=== PATIENT | female | born 1965 | race Caucasian/White ===

== ENCOUNTER 2018-01-09 11:49 | Emergency (ER) | payer MEDICAID ==
[~2018-01-09] VITALS: Ht 160 cm; Wt 71.7 kg
[2018-01-09 11:49] VITALS: BP 118/84
[~2018-01-09 11:49] MED LIST: GABA-532 PO; METF10004 PO
== END 2018-01-09 12:23 | disposition home or self-care (01) ==
LOC: ER 11:52
DX: K12.0 Recurrent oral aphthae (principal); E11.40 Type 2 diabetes mellitus with diabetic neuropathy, unspecified; Z79.4 Long term (current) use of insulin
CPT/HCPCS: 99283; A4606; Z7610

== ENCOUNTER 2018-02-01 16:24 | Emergency (ER) | payer MEDICAID ==
[~2018-02-01] VITALS: Ht 157.5 cm; Wt 73.5 kg
[~2018-02-01 16:24] MED LIST changes: +METF-442 PO; -METF10004 PO
[2018-02-01] MEDS ORDERED: ACETAMINOPHEN ES 500 MG TABLET PO ONE (17:00)
[2018-02-01 17:13] LABS: BASOPHILS % (AUTO) 0.4 % (0.0-2.0); EOSINOPHILS % (AUTO) 1.6 % (0.0-6.0); HEMATOCRIT 36 % (33-45); HEMOGLOBIN 11.1 g/dL (11.5-14.8); LYMPHOCYTES % (AUTO) 31.9 % (20.0-44.0); MEAN CORPUSCULAR HGB CONC 31 g/dl (31.0-36.0); MEAN CORPUSCULAR VOLUME 77 fL (82-100); MONOCYTES # (AUTO) 0.3 /CMM (0.1-1.30); MONOCYTES % (AUTO) 5.5 % (2.0-12.0); NEUTROPHILS # (AUTO) 3.8 /CMM (1.8-8.9); NEUTROPHILS % (AUTO) 60.6 % (43.0-81.0); PLATELET COUNT (AUTO) 252 /CMM (150-450); RDW COEFFICIENT OF VARIATION 18.8 (11.5-15.0); RED BLOOD CELL COUNT(AUTO) 4.66 MIL/uL (4.0-5.2); WHITE BLOOD COUNT (AUTO) 6.3 K/uL (4.3-11.0)
[2018-02-01] MEDS ORDERED: ACETAMINOPHEN ES 500 MG TABLET ONE (17:16)
[2018-02-01 17:50] LABS: CALCIUM, SERUM 9.1 mg/dL (8.5-10.1); CARBON DIOXIDE 29 mmol/L (21-32); CHLORIDE 101 mmol/L (98-107); CREATININE 1.1 mg/dL (0.6-1.3); GLUCOSE 273 mg/dL (74-106); POTASSIUM 4.2 mmol/L (3.5-5.1); SODIUM SERUM 136 mmol/L (136-145); UREA NITROGEN, BLOOD 22 mg/dL (7-18)
[2018-02-01 17:56] LABS: ALANINE AMINOTRANSFERASE 16 U/L (12-78); ALBUMIN 3.4 g/dL (3.4-5.0); ALKALINE PHOSPHATASE 108 U/L (46-116); ASPARTATE AMINOTRANSFERASE 14 U/L (15-37); BILIRUBIN,DIRECT 0.1 mg/dL (0.0-0.2); BILIRUBIN,TOTAL 0.6 mg/dL (0.2-1.0); TOTAL PROTEIN, SERUM 7.4 g/dL (6.4-8.2)
[2018-02-01 17:57] LABS: TROPONIN I < 0.017 ng/mL (0.00-0.056)
[2018-02-01 17:58] LABS: D-DIMER 0.29 mg/L(FEU (0.17-0.50); INR 0.94 (0.87-1.13)
[2018-02-01 19:14] LABS: APPEARANCE,URINE Clear (CLEAR); BILIRUBIN,URINE Negative (NEGATIVE); BLOOD, URINE Moderate Ery/uL (NEGATIVE); COLOR,URINE Yellow (YELLOW); KETONES,URINE Negative (NEGATIVE); LEUKOCYTE ESTERASE ,URINE Trace (NEGATIVE); NITRITE, URINE Negative (NEGATIVE); PROTEIN,URINE Negative (NEGATIVE); UGLUCOSE 500 MG/DL mg/dL (NEGATIVE); UROBILINOGEN,URINE 0.2 EU/dL (0.2)
[2018-02-01 19:46] LABS: BACTERIA,URINE Few /HPF (None Seen); SQUAMOUS EPITHELIAL CELL,UR Few /HPF (None Seen); URINE AMORPHOUS URATE Few /HPF (None Seen); WBC,URINE 21-50 /HPF (0-3)
[2018-02-01 20:58] VITALS: BP 134/82
== END 2018-02-01 20:58 | disposition home or self-care (01) ==
LOC: ER 16:29
DX: R07.89 Other chest pain (principal); R79.89 Other specified abnormal findings of blood chemistry; R31.29 Other microscopic hematuria; E11.9 Type 2 diabetes mellitus without complications; G62.9 Polyneuropathy, unspecified; I49.8 Other specified cardiac arrhythmias
CPT/HCPCS: 36415; 71045-TC; 80048-TC; 80076-TC; 81000-TC; 84484-TC; 85025-TC; 85378-TC; 85730-TC; 87086-TC; 87186-TC; A4606; Z7610

== ENCOUNTER 2018-05-25 16:18 | Inpatient (IN) | payer MEDICAID ==
[~2018-05-25] VITALS: Ht 160 cm; Wt 72.7 kg
--- NOTE | 2018-05-25 16:30 | NUR ---
PT BIB SELF C/O "Shewas eating-felt nauseous but continued to eat now feels like something stuck on my throat". PT IS AAOX3, NOT IN RESPIRATORY DISTRESS, KEPT RESTED AND COMFORTABLE.
--- NOTE | 2018-05-25 16:38 | NUR ---
DR. LIMA AT BEDSIDE FOR EVAL.
--- NOTE | 2018-05-25 16:40 | NUR ---
LABS DRAWNED AND SENT TO LAB. AWAITING RESULTS.
[2018-05-25 16:44] LABS: BASOPHILS % (AUTO) 0.5 % (0.0-2.0); EOSINOPHILS % (AUTO) 1.4 % (0.0-6.0); HEMATOCRIT 38 % (33-45); HEMOGLOBIN 12.1 g/dL (11.5-14.8); LYMPHOCYTES # (AUTO) 1.6 /CMM (0.8-4.8); LYMPHOCYTES % (AUTO) 23.3 % (20.0-44.0); MEAN CORPUSCULAR HGB CONC 32 g/dl (31.0-36.0); MEAN CORPUSCULAR VOLUME 79 fL (82-100); MONOCYTES # (AUTO) 0.4 /CMM (0.1-1.30); MONOCYTES % (AUTO) 5.3 % (2.0-12.0); NEUTROPHILS # (AUTO) 4.7 /CMM (1.8-8.9); NEUTROPHILS % (AUTO) 69.5 % (43.0-81.0); PLATELET COUNT (AUTO) 208 /CMM (150-450); RED BLOOD CELL COUNT(AUTO) 4.77 MIL/uL (4.0-5.2); WHITE BLOOD COUNT (AUTO) 6.7 K/uL (4.3-11.0)
[2018-05-25] MEDS ORDERED: LIDOCAINE VISCOUS 2% UD 15 ML UDC ONE (16:49)
[2018-05-25] MEDS ORDERED: GLUCAGON,HUMAN RECOMBINANT 1 MG/VIAL VIAL ONE (16:49)
[2018-05-25] MEDS ORDERED: NITROGLYCERIN 0.4 MG/TAB BOTTLE ONE (16:49)
[2018-05-25] MEDS ORDERED: ONDANSETRON HCL/PF 4 MG/2 ML VIAL ONE (16:49)
[2018-05-25] MEDS ORDERED: WATER FOR INJECTION,STERILE 10 ML ONE (16:53)
[2018-05-25 16:58] LABS: CARBON DIOXIDE 29 mmol/L (21-32); CHLORIDE 98 mmol/L (98-107); CREATININE 1.4 mg/dL (0.6-1.3); POTASSIUM 4.1 mmol/L (3.5-5.1); SODIUM SERUM 134 mmol/L (136-145); UREA NITROGEN, BLOOD 24 mg/dL (7-18)
[2018-05-25] MEDS ORDERED: NITROGLYCERIN 0.4 MG/TAB BOTTLE SL ONE (17:00)
[2018-05-25] MEDS ORDERED: GLUCAGON,HUMAN RECOMBINANT 1 MG/VIAL VIAL IV ONE (17:00)
[2018-05-25] MEDS ORDERED: IV NS 0.9% 1,000 ML BAG IV ONE ×3 (17:00→19:30)
[2018-05-25] MEDS ORDERED: LIDOCAINE VISCOUS 2% UD 15 ML UDC MM ONE (17:00)
[2018-05-25] MEDS ORDERED: ONDANSETRON HCL/PF 4 MG/2 ML VIAL IV ONE (17:00)
[2018-05-25 17:01] LABS: GLUCOSE 504 mg/dL (74-106)
--- NOTE | 2018-05-25 17:06 | NUR ---
NITRO GLYCERIN SL 1.2MG GIVEN ALL AT ONCE. DR LIMA AWARE.
[2018-05-25] MEDS ORDERED: INSULIN REGULAR, HUMAN 100 UNIT/ML 10 ML VIAL SQ ONE ×2 (18:00→19:30)
[2018-05-25] MEDS ORDERED: INSULIN REGULAR, HUMAN 100 UNIT/ML 10 ML VIAL ONE ×2 (18:04→19:14)
[2018-05-25] MEDS ORDERED: INSU100V7 SQ (19:21)
[2018-05-25] MEDS ORDERED: GABA-534 PO (19:21)
[2018-05-25] MEDS ORDERED: INSU100V3 SQ (19:21)
--- NOTE | 2018-05-25 19:26 | NUR ---
REPORT GIVEN TO COOK VACUUM KETTLE FOR RICHARD.
[2018-05-25] MEDS ORDERED: ANESTHESIA TRAY IN PYXIS 1 EA TRAY MC ONE (19:53)
--- NOTE | 2018-05-25 20:05 | NUR ---
POST-OP BED ASSIGNMENT 315-1
--- NOTE | 2018-05-25 20:10 | NUR ---
PT PICKED UP BY SURGERY STAFF.
--- NOTE | 2018-05-25 20:26 | NUR ---
REPORT GIVEN MS GUEVARA DUSTIN.
[2018-05-25] MEDS ORDERED: MIDAZOLAM HCL 2 MG/2ML VIAL ONE (20:28)
[2018-05-25] MEDS ORDERED: SUCCINYLCHOLINE CHLORIDE 20 MG/ML VIAL ONE (20:29)
[2018-05-25] MEDS ORDERED: FENTANYL PF 100MCG/2ML AMPUL ONE (20:29)
[2018-05-25] MEDS ORDERED: METOCLOPRAMIDE HCL 10 MG/2 ML VIAL ONE (20:30)
[2018-05-25] MEDS ORDERED: FAMOTIDINE/PF INJ 20 MG/2 ML VIAL IV ONE (20:30)
[2018-05-25 22:00] VITALS: BP 144/85
--- NOTE | 2018-05-25 22:15 | NUR ---
RN ADMITTING NOTES Pt ARRIVED TO THE FLOOR FROM OR IN [facility]. S/P EMERGENCY EGD. Pt WAS ABLE TO AMB WITH STEADY GAIT FROM [facility] TO ROOM BED WITH STAND BY ASSISTANCE. FAMILY IS ALSO AT BEDSIDE. Pt IS LETHARGIC BUT IS AWAKE. Pt IS A/OX4, VERBAL, ABLE TO MAKE NEEDS KNOWN. IV ACCESS ON RAC #20G. NO S/S OF ACUTE DISTRESS OR SOB NOTED. Pt DENIES HAVING ANY CP NOW OR ANY DISCOMFORT AT THIS TIME. SAFETY MEASURES IN PLACE. BED LOW, LOCKED, HOB ELEVATED, SIDE RAILS UP, CALL LIGHT AND BEDSIDE TABLE WITHIN REACH. WILL CONTINUE TO MONITOR Pt's CONDITION AND [facility]
--- NOTE | 2018-05-25 22:16 | NUR ---
RN NOTES PER SIDER MECHANIC REPORT BG S/P EGD WAS 214. NO COVERAGE GIVEN. WAITING FOR ORDERS FROM [facility].
--- NOTE | 2018-05-25 22:45 | NUR ---
RN NOTES Pt S/B MIKE BARAJAS AT BEDSIDE.
[2018-05-25] MEDS ORDERED: ACETAMINOPHEN 325 MG TABLET PO PRN (23:00)
[2018-05-25] MEDS ORDERED: HYDROCODONE/APAP 5/325MG 1 EACH TABLET PO PRN (23:00)
[2018-05-25] MEDS ORDERED: MAG HYDROX/AL HYDROX/SIMETH 30 ML UDC PO PRN (23:00)
[2018-05-25] MEDS ORDERED: DEXTROSE 50%-WATER 50 ML DISP.SYRIN IV PRN (23:00)
[2018-05-25] MEDS ORDERED: Z GUARD REMEDY 2 OZ OINT TP PRN (23:00)
[2018-05-25] MEDS ORDERED: ONDANSETRON HCL/PF 4 MG/2 ML VIAL IVP PRN (23:00)
[2018-05-25] MEDS ORDERED: INSULIN REGULAR, HUMAN 100 UNIT/ML 3 ML VIAL SQ PRN (23:00)
[2018-05-25] MEDS ORDERED: HYDROCODONE/APAP 10/325MG 1 EA TABLET PO PRN (23:00)
[2018-05-25] MEDS ORDERED: MAGNESIUM HYDROXIDE 30 ML UDC PO PRN (23:00)
[2018-05-26] MEDS ORDERED: IV NS 0.9% 1,000 ML IV PRN
--- NOTE | 2018-05-26 01:00 | NUR ---
RN NOTES RECHECKED BG 155. BG HAS DECREASED FROM PREVIOUS BG OF 214. NO INSULIN COVERAGE GIVEN AT THIS TIME SINCE Pt IS NOT EATING. WILL RECHECK BG @0630.
--- NOTE | 2018-05-26 06:40 | NUR ---
RN NOTES AC ACCUCHECK BG 107. NO INSULIN COVERAGE NEEDED AT THIS TIME. Pt ON CLEAR LIQUID DIET. PROVIDED APPLE JUICE AT BEDSIDE.
[2018-05-26] MEDS: BLOOD SUGAR DIAGNOSTIC 1 EACH STRIP IN SCH ×3 (06:46→17:12)
[2018-05-26 06:54] LABS: BASOPHILS % (AUTO) 0.4 % (0.0-2.0); EOSINOPHILS % (AUTO) 1.2 % (0.0-6.0); HEMATOCRIT 34 % (33-45); HEMOGLOBIN 10.8 g/dL (11.5-14.8); LYMPHOCYTES # (AUTO) 2.1 /CMM (0.8-4.8); LYMPHOCYTES % (AUTO) 31.6 % (20.0-44.0); MEAN CORPUSCULAR HGB CONC 32 g/dl (31.0-36.0); MEAN CORPUSCULAR VOLUME 78 fL (82-100); MONOCYTES # (AUTO) 0.5 /CMM (0.1-1.30); MONOCYTES % (AUTO) 7.1 % (2.0-12.0); NEUTROPHILS # (AUTO) 3.9 /CMM (1.8-8.9); NEUTROPHILS % (AUTO) 59.7 % (43.0-81.0); PLATELET COUNT (AUTO) 192 /CMM (150-450); RED BLOOD CELL COUNT(AUTO) 4.33 MIL/uL (4.0-5.2); WHITE BLOOD COUNT (AUTO) 6.6 K/uL (4.3-11.0)
--- NOTE | 2018-05-26 06:55 | NUR ---
RN CLOSING NOTES NO SIGNIFICANT CHANGES IN Pt's CONDITION. Pt REMAINS STABLE PER BASELINE. Pt RESTING IN BED. RESPIRATIONS EVEN AND UNLABORED. NO S/S OF ACUTE DISTRESS OR SOB NOTED DURING NIGHT. ALL NEEDS MET AND ATTENDED TO. SAFETY MEASURES IN PLACE. WILL ENDORSE TO DAYSHIFT RN FOR Pt's RICHARD.
[2018-05-26 07:18] LABS: CALCIUM, SERUM 7.9 mg/dL (8.5-10.1); CREATININE 0.7 mg/dL (0.6-1.3); MAGNESIUM 1.9 mg/dL (1.8-2.4); PHOSPHORUS 2.6 mg/dL (2.5-4.9); POTASSIUM 4.1 mmol/L (3.5-5.1)
[2018-05-26 07:19] LABS: THYROID STIMULATING HORMONE 2.728 uIU/mL (0.358-3.74)
--- NOTE | 2018-05-26 07:35 | NUR ---
MS RN Notes Pt in bed sleeping but easily awoken. Pt's family at bedside. No s/s of acute distress or SOB with respirations even and unlabored. Pt denies pain of any kind at this time. Call light within reach. Will continue to monitor.
[2018-05-26 08:00] VITALS: BP 148/77
[2018-05-26] MEDS: INSULIN REGULAR, HUMAN 100 UNIT/ML 3 ML VIAL SQ SCH ×3 (08:32→17:12)
[2018-05-26 16:00] VITALS: BP 121/66
--- NOTE | 2018-05-26 18:28 | NUR ---
MS/RN - Discharge Patient alert and oriented throughout the shift, discharged to home in stable condition, remain afebrile, denies any pain, not in any form of distress, ambulatory with steady gait. Reviewed discharge instructions with patient and she verbalized full understanding of all teachings including medications and follow-up care with followup with PCP within [address] chest for evaluation of nodules in 12 months. Continue home medications, better management of diabetes. Seek immediate medical attention for worsening symptoms, chest pain, shortness of breath, palpitations, abdominal pain distention, intractable, nausea and vomiting, diarrhea, hematochezia, melena, weakness, loss of consciousness, neurological deficit, or any other emergent concerns. All belongings with patient and she deny any missing items. Patient refused photos to be taken of skin, no breakdown. Saline lock removed on the right AC with catheter tip intact, no redness, no swelling noted at the site. Discharge paperwork signed and copies were given per protocol. Accompanied to the lobby via wheelchair and transported by private car by daughter.
[2018-05-26] MEDS ORDERED: GABAPENTIN 300 MG CAPSULE PO SCH (22:00)
[2018-05-26] MEDS ORDERED: INSULIN GLARGINE, 100 UNIT/ML CARTRIDGE SQ SCH (22:00)
== END 2018-05-26 18:32 | disposition home or self-care (01) | DRG 254 ==
LOC: ER 16:19 → MED 20:13
PROVIDERS: ADMIT Nurse Practitioner Acute Care; ATTEND Nurse Practitioner Acute Care
PROC: 0DC18ZZ Extirpation of Matter from Upper Esophagus, Via Natural or Artificial Opening Endoscopic (ICD-10-PCS; principal; 2018-05-25)
DX: T18.128A Food in esophagus causing other injury, initial encounter (principal); N17.0 Acute kidney failure with tubular necrosis; E11.42 Type 2 diabetes mellitus with diabetic polyneuropathy; E11.65 Type 2 diabetes mellitus with hyperglycemia; X58.XXXA Exposure to other specified factors, initial encounter; Y92.009 Unspecified place in unspecified non-institutional (private) residence as the place of occurrence of the external cause; E87.1 Hypo-osmolality and hyponatremia; Z79.4 Long term (current) use of insulin; Z79.84 Long term (current) use of oral hypoglycemic drugs; Z79.899 Other long term (current) drug therapy; Z83.3 Family history of diabetes mellitus; R91.8 Other nonspecific abnormal finding of lung field; R59.0 Localized enlarged lymph nodes
CPT/HCPCS: 36415; 71045-TC; 71250-TC; 80048-TC; 80061-TC; 82962-TC; 83735-TC; 84100-TC; 84443-TC; 84484-TC; 85025-TC; 85730-TC; 87081-TC; G0378; J0330; J1610; J1815; J2250; J2405; J2704; J2765; J3010; J3490; J7030

== ENCOUNTER 2018-06-22 12:19 | Inpatient (IN) | payer MEDICAID ==
[~2018-06-22] VITALS: Ht 160 cm; Wt 69.4 kg
[~2018-06-22 12:19] MED LIST changes: -GABA-532 PO; +GABA-534 PO; +INSU100V3 SQ; +INSU100V7 SQ
--- NOTE | 2018-06-22 12:35 | NUR ---
BIB DAUGHTER C/O NECK PAIN RADIATES TO L CHEST AND LEFT ARM SINCE THIS AM. STATES PAIN 9/10. SKIN WARM, DRY, INTACT. PT IS AOX4, AMB, VSS, RR EVEN AND UNLABORED ON RA. APPEARS SLIGHTLY ANXIOUS. HOOKED ON MONITOR AND READY FOR EVAL.
[2018-06-22] MEDS ORDERED: ASPIRIN 325 MG TABLET ONE (12:42)
[2018-06-22 12:58] LABS: BASOPHILS % (AUTO) 0.5 % (0.0-2.0); EOSINOPHILS % (AUTO) 1.2 % (0.0-6.0); HEMATOCRIT 37 % (33-45); HEMOGLOBIN 11.7 g/dL (11.5-14.8); LYMPHOCYTES # (AUTO) 1.7 /CMM (0.8-4.8); LYMPHOCYTES % (AUTO) 29.8 % (20.0-44.0); MEAN CORPUSCULAR HGB CONC 32 g/dl (31.0-36.0); MEAN CORPUSCULAR VOLUME 79 fL (82-100); MONOCYTES # (AUTO) 0.3 /CMM (0.1-1.30); MONOCYTES % (AUTO) 5.7 % (2.0-12.0); NEUTROPHILS # (AUTO) 3.5 /CMM (1.8-8.9); NEUTROPHILS % (AUTO) 62.8 % (43.0-81.0); PLATELET COUNT (AUTO) 193 /CMM (150-450); RED BLOOD CELL COUNT(AUTO) 4.67 MIL/uL (4.0-5.2); WHITE BLOOD COUNT (AUTO) 5.6 K/uL (4.3-11.0)
[2018-06-22] MEDS ORDERED: NITROGLYCERIN 0.4 MG/TAB BOTTLE SL ONE (13:00)
[2018-06-22] MEDS ORDERED: ASPIRIN 325 MG TABLET PO ONE (13:00)
[2018-06-22] MEDS ORDERED: NITROGLYCERIN 0.4 MG/TAB BOTTLE ONE (13:02)
[2018-06-22 13:05] LABS: CARBON DIOXIDE 24 mmol/L (21-32); CHLORIDE 105 mmol/L (98-107); GLUCOSE 284 mg/dL (74-106); POTASSIUM 4.6 mmol/L (3.5-5.1); SODIUM SERUM 137 mmol/L (136-145); UREA NITROGEN, BLOOD 33 mg/dL (7-18)
[2018-06-22 13:11] LABS: ALANINE AMINOTRANSFERASE 15 U/L (12-78); ALBUMIN 3.3 g/dL (3.4-5.0); ALKALINE PHOSPHATASE 112 U/L (46-116); ASPARTATE AMINOTRANSFERASE 12 U/L (15-37); BILIRUBIN,DIRECT 0.1 mg/dL (0.0-0.2); BILIRUBIN,TOTAL 0.6 mg/dL (0.2-1.0); TOTAL PROTEIN, SERUM 7.2 g/dL (6.4-8.2)
[2018-06-22] MEDS ORDERED: IV NS 0.9% 1,000 ML BAG IV ONE (14:00)
--- NOTE | 2018-06-22 14:51 | NUR ---
PT RESTING COMFORTABLY WITH FAMILY AT BEDSIDE. STATES SHE NO LONGER FEELS PAIN. WILL CONT TO MONITOR
--- NOTE | 2018-06-22 15:21 | NUR ---
CALLED [employer] SUPERVISOR TILE AND MOTTLE WAS PAGED.
[2018-06-22] MEDS ORDERED: NITROGLYCERIN PACKET 1 GM PACKET TOP ONE (16:30)
--- NOTE | 2018-06-22 16:35 | NUR ---
ADMIT TO 118-2 TELE
[2018-06-22] MEDS ORDERED: NITROGLYCERIN PACKET 1 GM PACKET ONE (16:37)
--- NOTE | 2018-06-22 16:53 | NUR ---
PT HAVING MEAL WITH DAUGHTER, OK PER
[2018-06-22] MEDS ORDERED: ACETAMINOPHEN 325 MG TABLET PO PRN (17:00)
[2018-06-22] MEDS ORDERED: Z GUARD REMEDY 2 OZ OINT TP PRN (17:00)
[2018-06-22] MEDS ORDERED: ONDANSETRON HCL/PF 4 MG/2 ML VIAL IVP PRN (17:00)
[2018-06-22] MEDS ORDERED: MAG HYDROX/AL HYDROX/SIMETH 30 ML UDC PO PRN (17:00)
[2018-06-22] MEDS ORDERED: HYDROCODONE/APAP 5/325MG 1 EACH TABLET PO PRN (17:00)
[2018-06-22] MEDS ORDERED: MAGNESIUM HYDROXIDE 30 ML UDC PO PRN (17:00)
[2018-06-22] MEDS ORDERED: ZOLPIDEM TARTRATE 5 MG TABLET PO PRN (17:00)
--- NOTE | 2018-06-22 17:17 | NUR ---
REPORT GIVEN TO GUEVARA MENA FOR 118-2 T
--- NOTE | 2018-06-22 18:38 | NUR ---
[facility]
[2018-06-22 18:40] VITALS: BP 129/71
--- NOTE | 2018-06-22 18:40 | NUR ---
RN NOTES RECEIVED PT FROM ER IN ROOM 118-2, A/Ox4, [place] SPEAKING , ON TELE SR HR IN 70'S , SUPPORTIVE FAMILY AT THE BEDSIDE, WILL ENDOSE TO HEEL SLUGGER NURSE FOR CONTINUITY OF CARE .
--- NOTE | 2018-06-22 19:45 | NUR ---
GOLF MANAGERHOME HOSPICE AIDE NOTE: PT ADMITTED FROM ER VIA [facility] WITH DIAGNOSIS OF CHEST PAIN. NO APPARENT DISTRESS NOTED AT THIS TIME. PT IS GERMAN SPEAKING, UNABLE TO UNDERSTAND/SPEAK [place]. FAMILY AT BEDSIDE. NO COMPLAINTS OF PAIN OR DISCOMFORT AT THIS TIME. ON ROOM AIR, NO SOB NOTED. IV ON LEFT ANTECUBITAL #20 INTACT AND PATENT, FLUSHING WELL. PERTINENT ASSESSMENT DONE. SKIN IS INTACT. SINUS RHYTHM ON TELE MONITOR HR 88BPM. KEPT CLEAN, DRY AND COMFORTABLE. CALL LIGHT PLACED WITHIN REACH. SAFETY AND FALL PRECAUTIONS OBSERVED AND MAINTAINED. WILL CONTINUE TO MONITOR PT.
[2018-06-22 20:00] VITALS: BP 137/71
[2018-06-22] MEDS: INSULIN REGULAR, HUMAN 100 UNIT/ML 3 ML VIAL SQ SCH (20:38)
--- NOTE | 2018-06-22 20:43 | NUR ---
SALES/MARKETING NOTE: CALLED PHARMACY REGARDING PATIENT'S INSULIN DUE AT 1700 THAT WAS NOT GIVEN. PER PHARMACY, OK TO GIVE INSULIN AT THIS TIME. BLOOD SUGAR CHECKED, 172MG/DL. WILL CONTINUE TO MONITOR PT.
[2018-06-22] MEDS ORDERED: INSULIN GLARGINE, 100 UNIT/ML CARTRIDGE SQ SCH (22:00)
[2018-06-22] MEDS: GABAPENTIN 300 MG CAPSULE PO SCH (22:02)
[2018-06-23] VITALS: BP_SYST 109; BP_SYST 99; BP_DIAS 55; BP_DIAS 57
[2018-06-23 04:00] VITALS: BP 117/61
--- NOTE | 2018-06-23 06:35 | NUR ---
AIR CREW OFFICER NOTE: NO CHANGES NOTED THROUGHOUT THE SHIFT. NO APPARENT DISTRESS NOTED. DENIES PAIN AND DISCOMFORT AT THIS TIME. ON ROOM AIR, SATURATING WELL. SINUS RHYTHM ON TELE MONITOR HR 62BPM. KEPT CLEAN, DRY AND COMFORTABLE. SAFETY AND FALL PRECAUTIONS OBSERVED AND MAINTAINED. WILL ENDORSE TO DAY SHIFT RN FOR CONTINUITY OF CARE.
[2018-06-23 07:08] LABS: BASOPHILS % (AUTO) 0.6 % (0.0-2.0); EOSINOPHILS % (AUTO) 1.5 % (0.0-6.0); HEMATOCRIT 32 % (33-45); HEMOGLOBIN 10.5 g/dL (11.5-14.8); LYMPHOCYTES # (AUTO) 2.5 /CMM (0.8-4.8); LYMPHOCYTES % (AUTO) 45.9 % (20.0-44.0); MEAN CORPUSCULAR HGB CONC 33 g/dl (31.0-36.0); MEAN CORPUSCULAR VOLUME 78 fL (82-100); MONOCYTES # (AUTO) 0.4 /CMM (0.1-1.30); MONOCYTES % (AUTO) 7.1 % (2.0-12.0); NEUTROPHILS # (AUTO) 2.4 /CMM (1.8-8.9); NEUTROPHILS % (AUTO) 44.9 % (43.0-81.0); PLATELET COUNT (AUTO) 165 /CMM (150-450); RED BLOOD CELL COUNT(AUTO) 4.07 MIL/uL (4.0-5.2); WHITE BLOOD COUNT (AUTO) 5.4 K/uL (4.3-11.0)
[2018-06-23 07:34] LABS: CALCIUM, SERUM 8.5 mg/dL (8.5-10.1); CREATININE 0.9 mg/dL (0.6-1.3); MAGNESIUM 1.9 mg/dL (1.8-2.4); POTASSIUM 4.1 mmol/L (3.5-5.1)
[2018-06-23 08:00] VITALS: BP 119/71
--- NOTE | 2018-06-23 08:00 | NUR ---
PATIENT IS ALERT AND ORIENTED X4. PATIENTS VITAL SIGNS ARE WNL. PATIENT REPORTING NO DISCOMFORT AND 0/10 PAIN ON PAIN SCALE. PATIENT IS IN NO APPARENT DISTRESS. PATIENT IS ON ROOM AIR WITH NORMAL SATURATION LEVEL. PATIENT NORMAL SINUS RHYTHM. SAFETY AND FALL PRECAUTIONS ARE OBSERVED AND MAINTAINED. PATIENT IS ON CARDIAC DIET. WILL ENDORSE TO MANAGER OF PHARMACY RN FOR CONTINUITY OF CARE.
[2018-06-23] MEDS ORDERED: BLOO-668 IN (08:39)
[2018-06-23] MEDS ORDERED: METFORMIN 500 MG TABLET PO SCH (09:00)
--- NOTE | 2018-06-23 09:12 | NUR ---
DR PUTNAM CAME TO SEE THE PT AND ORDERED TO ADMINISTER GLUCOPHAGE 500 [address] NOW [address] ANGIOGRAM.WILL FOLLOW UP WITH CT.
[2018-06-23] MEDS: BLOOD SUGAR DIAGNOSTIC 1 EACH STRIP IN SCH ×3 (09:14→16:54)
[2018-06-23] MEDS: ASPIRIN 81 MG TAB.CHEW PO SCH (09:41)
[2018-06-23] MEDS: ATORVASTATIN 10 MG TABLET PO SCH (09:41)
[2018-06-23] MEDS: LOSARTAN POTASSIUM 50 MG TABLET PO SCH (09:42)
[2018-06-23] MEDS: INSULIN REGULAR, HUMAN 100 UNIT/ML 3 ML VIAL SQ SCH ×3 (09:44→18:40)
[2018-06-23 12:00] VITALS: BP 132/64
[2018-06-23 12:57] LABS: THYROID STIMULATING HORMONE 2.075 uIU/mL (0.358-3.74)
--- NOTE | 2018-06-23 13:47 | NUR ---
PT STILL NPO DUE TO PENDING CT ANGIOGRAM WITH 3D IMAGE PROCEDURE.PT COMPLIANT.CONSENT HAS BEEN SIGNED.INSULIN HELD DUE TO NPO.WILL ADMINISTER SOON THE PT EATS HER LUNCH.
[2018-06-23 16:00] VITALS: BP 130/71
[2018-06-23] MEDS ORDERED: CT SWABBABLE VALVE TRANS SET 1 EA INFUS.SET MC ONE (16:57)
[2018-06-23] MEDS ORDERED: IV NS 0.9% 250 ML IV ONE (16:57)
[2018-06-23] MEDS ORDERED: IOHEXOL-350 100 ML VIAL IV ONE (16:57)
[2018-06-23] MEDS ORDERED: METOPROLOL TARTRATE INJ 5 MG/5 ML AMPUL ONE ×4 (16:58→17:36)
--- NOTE | 2018-06-23 17:00 | NUR ---
PT WAS BROUGHT TO CT FOR CTA PROCEDURE.WITH STABLE V/S.BLOOD SUGAR IS 79.
[2018-06-23] MEDS ORDERED: METOPROLOL TARTRATE INJ 5 MG/5 ML AMPUL IVP ONE (17:30)
[2018-06-23] MEDS ORDERED: IV NS 0.9% 500 ML IV ONE (17:30)
--- NOTE | 2018-06-23 18:00 | NUR ---
PT CAME BACK FROM CT POST CT ANGIOGRAM WITH STABLE V/S. BP 128/88.METOPROLOL 50 MG PO AND IV NS [address] UNIT.PT ATE DINNER AND HUMULIN R 5 UNITS WILL BE ADMINISTERED.FAMILY AT BEDSIDE.CALL LIGHT PLACED WITHIN REACH.
--- NOTE | 2018-06-23 19:45 | NUR ---
MS RN NOTE: RECEIVED PT ON BED ALERT AND AWAKE. ABLE TO MAKE NEEDS KNOWN. FAMILY MEMBER AT BEDSIDE. NO APPARENT DISTRESS NOTED. ON ROOM AIR, NO SOB NOTED. DENIES PAIN AND DISCOMFORT. RIGHT AC #18 INTACT AND PATENT, FLUSHING WELL. KEPT CLEAN, DRY AND COMFORTABLE. SAFETY AND FALL PRECAUTIONS OBSERVED AND MAINTAINED. CALL LIGHT WITHIN REACH. WILL CONTINUE TO MONITOR PT.
[2018-06-23 20:00] VITALS: BP 114/59
[2018-06-23] MEDS: GABAPENTIN 300 MG CAPSULE PO SCH (21:32)
[2018-06-23] MEDS: INSULIN GLARGINE, 100 UNIT/ML CARTRIDGE SQ SCH (21:33)
--- NOTE | 2018-06-23 21:33 | NUR ---
MS RN NOTE: INSULIN LANTUS HELD, BLOOD SUGAR 73MG/DL
[2018-06-24 04:00] VITALS: BP 110/57
[2018-06-24 06:25] LABS: CALCIUM, SERUM 8.7 mg/dL (8.5-10.1); CREATININE 0.8 mg/dL (0.6-1.3); POTASSIUM 4.3 mmol/L (3.5-5.1)
[2018-06-24 06:42] LABS: BASOPHILS % (AUTO) 0.6 % (0.0-2.0); EOSINOPHILS % (AUTO) 2.1 % (0.0-6.0); HEMATOCRIT 34 % (33-45); LYMPHOCYTES # (AUTO) 2.4 /CMM (0.8-4.8); LYMPHOCYTES % (AUTO) 42.4 % (20.0-44.0); MEAN CORPUSCULAR HGB CONC 33 g/dl (31.0-36.0); MEAN CORPUSCULAR VOLUME 78 fL (82-100); MONOCYTES # (AUTO) 0.4 /CMM (0.1-1.30); MONOCYTES % (AUTO) 7.1 % (2.0-12.0); NEUTROPHILS # (AUTO) 2.7 /CMM (1.8-8.9); NEUTROPHILS % (AUTO) 47.8 % (43.0-81.0); PLATELET COUNT (AUTO) 185 /CMM (150-450); RED BLOOD CELL COUNT(AUTO) 4.32 MIL/uL (4.0-5.2); WHITE BLOOD COUNT (AUTO) 5.6 K/uL (4.3-11.0)
--- NOTE | 2018-06-24 06:55 | NUR ---
MS RN NOTE: NO CHANGES NOTED THROUGHOUT THE SHIFT. NO ACUTE DISTRESS NOTED. DENIES PAIN AND DISCOMFORT AT THIS TIME. ON ROOM AIR, SATURATING WELL. KEPT CLEAN, DRY AND COMFORTABLE. SAFETY AND FALL PRECAUTIONS OBSERVED AND MAINTAINED. WILL ENDORSE TO DAY SHIFT RN FOR CONTINUITY OF CARE.
--- NOTE | 2018-06-24 07:20 | NUR ---
RN MS OPENING NOTES RECEIVED PATIENT IN BED ASLEEP . DAUGHTER AT BEDSIDE. A/O X4 KYRGYZ SPEAKING. NO SIGNS OR SYMPTOMS OF RESPIRATORY DISTRESS OR ACUTE PAIN NOTED. NO C/O CHEST PAIN. IV IN RAC #18 SALINE LOCK. SAFETY PRECAUTIONS IN PLACE BED IN LOW POSITION CALL LIGHT WITHIN REACH WILL CONT TO MONITOR
[2018-06-24 08:00] VITALS: BP 96/57
[2018-06-24] MEDS: LOSARTAN POTASSIUM 50 MG TABLET PO SCH (09:00)
[2018-06-24] MEDS: BLOOD SUGAR DIAGNOSTIC 1 EACH STRIP IN SCH ×3 (09:04→17:25)
[2018-06-24] MEDS: ATORVASTATIN 10 MG TABLET PO SCH (09:06)
[2018-06-24] MEDS: INSULIN REGULAR, HUMAN 100 UNIT/ML 3 ML VIAL SQ SCH ×3 (09:06→17:49)
[2018-06-24] MEDS: ASPIRIN 81 MG TAB.CHEW PO SCH (09:06)
[2018-06-24 16:00] VITALS: BP 96/64
--- NOTE | 2018-06-24 19:20 | NUR ---
RN MS CLOSING NOTES PATIENT A/O X4 NO SIGNS OR SYMPTOMS OF DISTRESS OR ACUTE PAIN. AWAITING PLACEMENT TO FACILITY FOR HIRE LEVEL OF CARE. LAD @80% STENOSIS NEEDED CARDIAC CATH. GREENLANDIC SPEAKING DAUGHTER AT BEDSIDE. WILL ENDORSE TO NOC
[2018-06-24 20:00] VITALS: BP 107/67
--- NOTE | 2018-06-24 20:00 | NUR ---
RN VEGA OPENING NOTES RECEIVED PATIENT IN BED DAUGHTER AT THE BEDSIDE. PATIENT IS A/O X4 TRINIDADIAN SPEAKING. NO SIGNS OR SYMPTOMS OF RESPIRATORY DISTRESS OR ACUTE PAIN NOTED. NO C/O CHEST PAIN OR SOB AT THIS TIME . IV IN RAC #18 IV SALINE LOCK IS IN PLACE, PATIENT AND INTACT. SAFETY PRECAUTIONS IN PLACE BED IN LOW POSITION CALL LIGHT WITHIN REACH WILL CONT TO MONITOR PATIENT CLOSELY.
[2018-06-24] MEDS: GABAPENTIN 300 MG CAPSULE PO SCH (22:20)
[2018-06-24] MEDS: INSULIN GLARGINE, 100 UNIT/ML CARTRIDGE SQ SCH (22:26)
[2018-06-25 04:00] VITALS: BP 105/60
[2018-06-25 07:09] LABS: BASOPHILS % (AUTO) 0.3 % (0.0-2.0); HEMATOCRIT 35 % (33-45); HEMOGLOBIN 11.2 g/dL (11.5-14.8); LYMPHOCYTES # (AUTO) 1.8 /CMM (0.8-4.8); LYMPHOCYTES % (AUTO) 37.1 % (20.0-44.0); MEAN CORPUSCULAR HGB CONC 32 g/dl (31.0-36.0); MEAN CORPUSCULAR VOLUME 79 fL (82-100); MONOCYTES # (AUTO) 0.4 /CMM (0.1-1.30); MONOCYTES % (AUTO) 8.6 % (2.0-12.0); NEUTROPHILS # (AUTO) 2.5 /CMM (1.8-8.9); PLATELET COUNT (AUTO) 165 /CMM (150-450); RED BLOOD CELL COUNT(AUTO) 4.47 MIL/uL (4.0-5.2); WHITE BLOOD COUNT (AUTO) 4.9 K/uL (4.3-11.0)
[2018-06-25 07:28] LABS: CALCIUM, SERUM 8.8 mg/dL (8.5-10.1); CREATININE 0.9 mg/dL (0.6-1.3); POTASSIUM 4.4 mmol/L (3.5-5.1)
--- NOTE | 2018-06-25 07:31 | NUR ---
RN OPENING NOTE RECEIVED PATIENT IN BED AWAKE AND ALERT. LUXEMBOURG[place] SPEAKING. A&OX4. DAUGHTER ON BEDSIDE. SKIN IS INTACT. HAS AN ACCESS RIGHT AC #18 SL. PATIENT IS AMBULATORY AND HAS BATHROOM PRIVILEGES. NO COMPLAINS OF ANY PAIN AT THIS TIME. NO DISTRESS OR ANY SOB. WILL CONTINUE TO MONITOR THROUGHOUT THE SHIFT.
[2018-06-25] MEDS: ASPIRIN 81 MG TAB.CHEW PO SCH (08:19)
[2018-06-25] MEDS: ATORVASTATIN 10 MG TABLET PO SCH (08:22)
[2018-06-25] MEDS: LOSARTAN POTASSIUM 50 MG TABLET PO SCH (08:22)
[2018-06-25] MEDS: BLOOD SUGAR DIAGNOSTIC 1 EACH STRIP IN SCH ×2 (08:29→13:30)
[2018-06-25] MEDS: INSULIN REGULAR, HUMAN 100 UNIT/ML 3 ML VIAL SQ SCH ×2 (08:33→13:30)
[2018-06-25] MEDS ORDERED: CARVEDILOL 3.125 MG TABLET PO SCH (09:00)
--- NOTE | 2018-06-25 10:37 | NUR ---
MS nurse ,renal case manager here for discussed for transfer to [facility] possible heart catheter tomorrow stated that will sign AMA wants to go [facility] with family member, was notified and provide all lab results CD as needed and signed AMA paper at this time
[2018-06-25 12:00] VITALS: BP 96/58
== END 2018-06-25 13:24 | disposition left against medical advice (07) | DRG 198 ==
LOC: ER 12:22 → TELE1 17:51 → MEDSG1 06-23 19:11
PROVIDERS: ADMIT Family Medicine; ATTEND Internal Medicine
DX: I25.10 Atherosclerotic heart disease of native coronary artery without angina pectoris (principal); E11.42 Type 2 diabetes mellitus with diabetic polyneuropathy; E11.65 Type 2 diabetes mellitus with hyperglycemia; E86.9 Volume depletion, unspecified; E44.1 Mild protein-calorie malnutrition; Z79.4 Long term (current) use of insulin; E78.5 Hyperlipidemia, unspecified; I10 Essential (primary) hypertension; Z83.3 Family history of diabetes mellitus
CPT/HCPCS: 36415; 71045-TC; 75574; 80048-TC; 80061-TC; 80076-TC; 82962-TC; 83735-TC; 84100-TC; 84439-TC; 84443-TC; 84484-TC; 85025-TC; 85730-TC; 87081-TC; 93307-TC; G0378; J1815; J3490; J7030; J7040; J7050; Q9967

== ENCOUNTER 2018-10-16 12:33 | Inpatient (IN) | payer MEDICAID ==
[~2018-10-16] VITALS: Ht 157.5 cm; Wt 68.2 kg
--- NOTE | 2018-10-16 01:44 | NUR ---
RN NOTES BLOOD SUGAR 61, JUST TAKEN BEFORE PREPARATION OF MEDICATION. WITHELD MEDICATION, ALTHOUGH IT WAS SCANNED. WILL MONITOR PATIENT.
[~2018-10-16 12:33] MED LIST changes: +BLOO-668 IN
--- NOTE | 2018-10-16 12:45 | NUR ---
CAME IN W C/O L SIDED PRESSURE LIKE CHEST PAIN RADIATING TO L SHOULDER AND NECK. STARTED 2 DAYS AGO. TO ER BED 10, HOOKED TO MONITOR, CHANGED TO GOWN, PROVIDED W WARM BLANKET, AWAITING MD AMES.
--- NOTE | 2018-10-16 12:48 | NUR ---
DR LI AT BEDSIDE
[2018-10-16 13:03] LABS: BASOPHILS % (AUTO) 0.6 % (0.0-2.0); EOSINOPHILS % (AUTO) 1.5 % (0.0-6.0); HEMATOCRIT 37 % (33-45); LYMPHOCYTES # (AUTO) 1.4 /CMM (0.8-4.8); LYMPHOCYTES % (AUTO) 26.9 % (20.0-44.0); MEAN CORPUSCULAR HGB CONC 33 g/dl (31.0-36.0); MEAN CORPUSCULAR VOLUME 81 fL (82-100); MONOCYTES # (AUTO) 0.3 /CMM (0.1-1.30); MONOCYTES % (AUTO) 6.8 % (2.0-12.0); NEUTROPHILS # (AUTO) 3.3 /CMM (1.8-8.9); NEUTROPHILS % (AUTO) 64.2 % (43.0-81.0); PLATELET COUNT (AUTO) 184 /CMM (150-450); RED BLOOD CELL COUNT(AUTO) 4.53 MIL/uL (4.0-5.2); WHITE BLOOD COUNT (AUTO) 5.1 K/uL (4.3-11.0)
[2018-10-16] MEDS ORDERED: ASPI-1169 PO (13:11)
[2018-10-16 13:22] LABS: CARBON DIOXIDE 25 mmol/L (21-32); CHLORIDE 100 mmol/L (98-107); CREATININE 1.2 mg/dL (0.6-1.3); POTASSIUM 4.3 mmol/L (3.5-5.1); SODIUM SERUM 135 mmol/L (136-145); UREA NITROGEN, BLOOD 31 mg/dL (7-18)
[2018-10-16 13:24] LABS: GLUCOSE 412 mg/dL (74-106)
[2018-10-16] MEDS ORDERED: ASPIRIN 325 MG TABLET PO ONE (13:30)
[2018-10-16] MEDS ORDERED: ASPIRIN 325 MG TABLET ONE (13:44)
--- NOTE | 2018-10-16 14:31 | NUR ---
ASSIGNED BED 207-1 Addendum: 10/16/18 at 1431 by ROALCANCES CORRECTION: BED 320-1
--- NOTE | 2018-10-16 14:48 | NUR ---
REPORT GIVEN TI JASSON WATERMAN OF TELE UNIT
--- NOTE | 2018-10-16 16:27 | NUR ---
TRAFFIC CONTROL OPERATORWILDLIFE ENFORCEMENT MAJOR NOTES Received Patient comfortable and resting in bed. A/O x 4. VS stable with no acute distress. Breathing even and unlabored on room air with no respiratory distress. Denies pain. Telemonitor in place and operational reading SR with HR-80s. 20g PIV on RFA clean, dry, intact, and flushing well. Skin intact. Safety precautions in place. Bed locked and set to lowest position with side rails x 2. All needs rendered at this time. Daughter at bedside. Will continue to monitor.
[2018-10-16] MEDS ORDERED: Z GUARD REMEDY 2 OZ OINT TP PRN (17:00)
[2018-10-16] MEDS ORDERED: MAGNESIUM HYDROXIDE 30 ML UDC PO PRN (17:00)
[2018-10-16] MEDS: BLOOD SUGAR DIAGNOSTIC 1 EACH STRIP IN SCH ×2 (17:00→20:41)
[2018-10-16] MEDS ORDERED: ACETAMINOPHEN 325 MG TABLET PO PRN (17:00)
[2018-10-16] MEDS ORDERED: DEXTROSE 50%-WATER 50 ML DISP.SYRIN IV PRN (17:00)
[2018-10-16] MEDS ORDERED: HYDROCODONE/APAP 5/325MG 1 EACH TABLET PO PRN (17:00)
[2018-10-16] MEDS ORDERED: ONDANSETRON HCL/PF 4 MG/2 ML VIAL IVP PRN (17:00)
[2018-10-16] MEDS ORDERED: ZOLPIDEM TARTRATE 5 MG TABLET PO PRN (17:00)
[2018-10-16] MEDS: METFORMIN 500 MG TABLET PO SCH (18:06)
--- NOTE | 2018-10-16 19:30 | NUR ---
REPAIR SERVICER CLOSING NOTES Patient comfortable and resting in bed. A/O x 4. VS stable with no acute distress. Breathing even and unlabored on room air with no respiratory distress. Denies pain. Telemonitor in place and operational reading SR with HR-80s. 20g PIV on RFA clean, dry, intact, and flushing well. Safety precautions in place. Bed locked and set to lowest position with side rails x 2. All needs rendered at this time. Family at bedside. Will endorse plan of care to oncoming shift.
--- NOTE | 2018-10-16 19:41 | NUR ---
RN OPENING NOTES RECEIVED PATIENT AWAKE IN BED. FAMILY AT BEDSIDE. A/O X4. ON TELE MONITOR. NO SIGNS OF RESPIRATORY DISTRESS NOTED. DENIES SOB. PATIENT DENIES PAIN/DISCOMFORT AT THIS TIME. IV SITE PATENT AND INTACT. SAFETY PRECAUTIONS IMPLEMENTED; CALL LIGHT WITHIN REACH, BED LOW, BED LOCKED, SIDERAILS UP X2. WILL CONTINUE TO MONITOR PATIENT.
[2018-10-16 20:00] VITALS: BP 131/69
--- NOTE | 2018-10-16 20:59 | NUR ---
RN NOTES BLOOD SUGAR 329. ADMINISTERED 12 UNITS. SNACKS WERE GIVEN.
[2018-10-16] MEDS: INSULIN REGULAR, HUMAN 100 UNIT/ML 3 ML VIAL SQ PRN (21:00)
[2018-10-16] MEDS ORDERED: GABAPENTIN 400 MG CAPSULE PO SCH (22:00)
[2018-10-17] VITALS: BP 91/55
[2018-10-17] MEDS ORDERED: IV NS 0.9% 1,000 ML IV PRN (00:30)
[2018-10-17] MEDS ORDERED: ATORVASTATIN 10 MG TABLET PO SCH (00:30)
[2018-10-17] MEDS: BLOOD SUGAR DIAGNOSTIC 1 EACH STRIP IN SCH ×5 (01:38→13:13)
[2018-10-17] MEDS: INSULIN REGULAR, HUMAN 100 UNIT/ML 3 ML VIAL SQ PRN ×4 (01:43→08:50)
--- NOTE | 2018-10-17 01:44 | NUR ---
RN NOTES BLOOD SUGAR 61, JUST TAKEN BEFORE PREPARATION OF MEDICATION. WITHELD MEDICATION, ALTHOUGH IT WAS SCANNED. WILL MONITOR PATIENT.
--- NOTE | 2018-10-17 01:44 | NUR ---
RN NOTES WITHHELD INSULIN ALTHOUGH I SCANNED MEDICATION. BLOOD SUGAR WAS SLIGHTLY LOW BELOW NORMAL.
--- NOTE | 2018-10-17 01:45 | NUR ---
RN NOTES DISREGARD NOTES FOR 10/17 143. ACCIDENTALLY PUT WRONG DATE.
[2018-10-17 03:44] LABS: BASOPHILS % (AUTO) 0.5 % (0.0-2.0); EOSINOPHILS % (AUTO) 2.4 % (0.0-6.0); HEMATOCRIT 35 % (33-45); HEMOGLOBIN 11.5 g/dL (11.5-14.8); LYMPHOCYTES # (AUTO) 1.8 /CMM (0.8-4.8); LYMPHOCYTES % (AUTO) 25.6 % (20.0-44.0); MEAN CORPUSCULAR HGB CONC 33 g/dl (31.0-36.0); MEAN CORPUSCULAR VOLUME 80 fL (82-100); MONOCYTES # (AUTO) 0.4 /CMM (0.1-1.30); MONOCYTES % (AUTO) 5.4 % (2.0-12.0); NEUTROPHILS # (AUTO) 4.6 /CMM (1.8-8.9); NEUTROPHILS % (AUTO) 66.1 % (43.0-81.0); PLATELET COUNT (AUTO) 179 /CMM (150-450); RED BLOOD CELL COUNT(AUTO) 4.34 MIL/uL (4.0-5.2); WHITE BLOOD COUNT (AUTO) 6.9 K/uL (4.3-11.0)
[2018-10-17 03:56] LABS: CALCIUM, SERUM 9.2 mg/dL (8.5-10.1); MAGNESIUM 1.9 mg/dL (1.8-2.4); PHOSPHORUS 3.8 mg/dL (2.5-4.9); POTASSIUM 3.6 mmol/L (3.5-5.1)
[2018-10-17 04:00] VITALS: BP 101/66
--- NOTE | 2018-10-17 05:22 | NUR ---
RN NOTES BLOOD SUGAR 236. ADMINISTERED 6 UNITS OF HUMULIN. SNACKS PROVIDED.
--- NOTE | 2018-10-17 06:42 | NUR ---
RN CLOSING NOTES PATIENT IS ASLEEP, RESTING COMFORTABLE IN BED. A/O X4. NO SIGNS OF RESPIRATORY DISTRESS. DENIES SOB. DENIES PAIN OR DISCOMFORT AT THIS TIME. TELE MONITOR IN PLACE WITH LAST READING OF SR 87. IV SITE INTACT AND PATENT. SAFETY PRECAUTIONS IMPLEMENTED; CALL LIGHT WITHIN REACH, BED LOW, BED LOCKED, SIDERAILS UP X2. ALL NEEDS ATTENDED TO AT THIS TIME. WILL ENDORSE TO AM SHIFT FOR CONTINUITY OF CARE.
--- NOTE | 2018-10-17 07:12 | NUR ---
STUDIO ASSOCIATE NOTES PATIENT IN BED ALERT ORIENTED X 4. NO ACUTE DISTRESS NOTED. BREATHING UNLABORED. NO SOB NOTED IV ACCESS PATENT AND INTACT. SAFETY MEASURES IN PLACE. CALL LIGHT WITHIN REACH. WILL CONTINUE TO MONITOR ACCORDINGLY.
[2018-10-17 08:00] VITALS: BP 120/68
[2018-10-17] MEDS: METFORMIN 500 MG TABLET PO SCH (08:42)
[2018-10-17] MEDS ORDERED: ASPIRIN 81 MG TAB.CHEW PO SCH (09:00)
[2018-10-17 12:00] VITALS: BP 149/84
--- NOTE | 2018-10-17 14:20 | NUR ---
MS RN NOTES SEEN AND EVALUATED BY DR REYNALDO WELCH WITH NEW ORDERS MADE, NOTED AND CARRIED OUT.
[2018-10-17 16:00] VITALS: BP 130/74
--- NOTE | 2018-10-17 16:35 | NUR ---
MS FOUR ROLL CALENDER OPERATOR NOTES PATIENT DISCHARGED HOME WITH STABLE VITAL SIGNS, NO ACUTE DISTRESS NOTED. BREATHING UNLABORED. NO SOB NOTED. DENIED ANY PAIN. DISCHARGE INSTRUCTIONS GIVEN TO THE PATIENT, VERBALIZED UNDERSTANDING. IV ACCESS REMOVED, NO BLEEDING, NO REDNESS, NO SWELLING NOTED. ASSISTED TO THE LOBBY, PICKED UP BY DAUGHTER VIA PRIVATE CAR IN STABLE CONDITION.
== END 2018-10-17 16:35 | disposition home or self-care (01) | DRG 203 ==
LOC: ER 12:33 → TELE 14:59 → MED 10-17 12:14
PROVIDERS: ADMIT Nurse Practitioner Acute Care
DX: M94.0 Chondrocostal junction syndrome [Tietze] (principal); E11.42 Type 2 diabetes mellitus with diabetic polyneuropathy; I25.10 Atherosclerotic heart disease of native coronary artery without angina pectoris; E11.65 Type 2 diabetes mellitus with hyperglycemia; E87.1 Hypo-osmolality and hyponatremia; Z79.4 Long term (current) use of insulin; Z95.1 Presence of aortocoronary bypass graft; Z79.84 Long term (current) use of oral hypoglycemic drugs
CPT/HCPCS: 36415; 71045-TC; 80048-TC; 80061-TC; 82962-TC; 83735-TC; 84100-TC; 84484-TC; 85025-TC; 87081-TC; 93307-TC; G0378; J1815; J7030

== ENCOUNTER 2019-01-22 11:44 | Emergency (ER) | payer MEDICAID ==
[~2019-01-22] VITALS: Ht 165.1 cm; Wt 74.8 kg
[~2019-01-22 11:44] MED LIST changes: +ASPI-1169 PO
--- NOTE | 2019-01-22 11:55 | NUR ---
BIB DAUGHTER 53 YEAR OLD FEMALE C/O L sided chest pain, radiating to the L arm since this morning. ALERT AND OREINTED X4, BREATHING EVEN AND UNLABORED WITH NO DISTRESS NOTED. SKIN WAMR TO TOUCH AND INTACT. WAITING TO BE SEEN BY .
[2019-01-22 12:15] LABS: BASOPHILS % (AUTO) 0.6 % (0.0-2.0); EOSINOPHILS % (AUTO) 1.9 % (0.0-6.0); HEMATOCRIT 38 % (33-45); HEMOGLOBIN 12.4 g/dL (11.5-14.8); LYMPHOCYTES # (AUTO) 1.5 /CMM (0.8-4.8); LYMPHOCYTES % (AUTO) 27.2 % (20.0-44.0); MEAN CORPUSCULAR HGB CONC 33 g/dl (31.0-36.0); MEAN CORPUSCULAR VOLUME 82 fL (82-100); MONOCYTES # (AUTO) 0.2 /CMM (0.1-1.30); NEUTROPHILS # (AUTO) 3.7 /CMM (1.8-8.9); NEUTROPHILS % (AUTO) 66.3 % (43.0-81.0); PLATELET COUNT (AUTO) 208 /CMM (150-450); RED BLOOD CELL COUNT(AUTO) 4.59 MIL/uL (4.0-5.2); WHITE BLOOD COUNT (AUTO) 5.6 K/uL (4.3-11.0)
[2019-01-22 12:23] LABS: CALCIUM, SERUM 9.5 mg/dL (8.5-10.1); CARBON DIOXIDE 28 mmol/L (21-32); CHLORIDE 101 mmol/L (98-107); GLUCOSE 275 mg/dL (74-106); POTASSIUM 3.9 mmol/L (3.5-5.1); SODIUM SERUM 137 mmol/L (136-145); UREA NITROGEN, BLOOD 25 mg/dL (7-18)
--- NOTE | 2019-01-22 12:49 | NUR ---
Denies pain at this time. Patient discharged to home in stable condition. Written and verbal after care instructions given. Patient verbalizes understanding of instruction.
--- NOTE | 2019-01-22 12:49 | NUR ---
Note joe in EDM - 01/22/19 at 1249 by VALARIE Patient discharged to home in stable condition. Written and verbal after care instructions given. Patient verbalizes understanding of instruction. IV removed. Catheter intact and site benign. Pressure and 4x4 applied to site. No bleeding noted.
--- NOTE | 2019-01-22 12:49 | NUR ---
Patient discharged to home in stable condition. Written and verbal after care instructions given. Patient verbalizes understanding of instruction.
[2019-01-22 12:50] VITALS: BP 104/60
== END 2019-01-22 12:50 | disposition home or self-care (01) ==
LOC: ER 11:46
DX: R07.89 Other chest pain (principal); G62.9 Polyneuropathy, unspecified; E11.9 Type 2 diabetes mellitus without complications; Z79.4 Long term (current) use of insulin; Z79.82 Long term (current) use of aspirin
CPT/HCPCS: 36415; 71045-TC; 80048-TC; 84484-TC; 85025-TC

== ENCOUNTER 2019-03-04 09:04 | Emergency (ER) | payer MEDICAID ==
[~2019-03-04] VITALS: Ht 160 cm; Wt 64.4 kg
[2019-03-04] MEDS ORDERED: ACETAMINOPHEN ES 500 MG TABLET PO ONE (09:30)
[2019-03-04] MEDS ORDERED: ACETAMINOPHEN ES 500 MG TABLET ONE (09:39)
[2019-03-04 09:41] LABS: BASOPHILS % (AUTO) 0.4 % (0.0-2.0); EOSINOPHILS % (AUTO) 1.2 % (0.0-6.0); HEMATOCRIT 37 % (33-45); HEMOGLOBIN 12.2 g/dL (11.5-14.8); LYMPHOCYTES # (AUTO) 1.5 /CMM (0.8-4.8); LYMPHOCYTES % (AUTO) 25.7 % (20.0-44.0); MEAN CORPUSCULAR HGB CONC 33 g/dl (31.0-36.0); MEAN CORPUSCULAR VOLUME 83 fL (82-100); MONOCYTES # (AUTO) 0.4 /CMM (0.1-1.30); MONOCYTES % (AUTO) 6.4 % (2.0-12.0); NEUTROPHILS # (AUTO) 3.9 /CMM (1.8-8.9); NEUTROPHILS % (AUTO) 66.3 % (43.0-81.0); PLATELET COUNT (AUTO) 174 /CMM (150-450); RED BLOOD CELL COUNT(AUTO) 4.52 MIL/uL (4.0-5.2)
--- NOTE | 2019-03-04 09:43 | NUR ---
PATIENT AWAKE ALERT HER DAUGTHER @ BEDSIDE FOR ROMANIAN INTERPRETATION (TANMAY ) PATIENT COMPLAIN ALL OVER BODY ACHES NOTED PATIENT ABLE TO AMBULATED TO RESTROOM NON DIFFICUTIES URINE AND BLOOD OBTAINED AND SEND TO LAB
[2019-03-04 09:44] LABS: BILIRUBIN,URINE Negative (NEGATIVE); BLOOD, URINE Moderate Ery/uL (NEGATIVE); COLOR,URINE Yellow (YELLOW); KETONES,URINE Negative (NEGATIVE); LEUKOCYTE ESTERASE ,URINE Small (NEGATIVE); NITRITE, URINE Positive (NEGATIVE); PROTEIN,URINE Negative (NEGATIVE); UGLUCOSE 500 MG/DL mg/dL (NEGATIVE); UROBILINOGEN,URINE 0.2 EU/dL (0.2)
[2019-03-04 09:46] LABS: APPEARANCE,URINE Slightly Cloudy (CLEAR)
[2019-03-04 10:02] LABS: BACTERIA,URINE Many /HPF (None Seen)
[2019-03-04 10:03] LABS: SQUAMOUS EPITHELIAL CELL,UR Moderate /HPF (None Seen)
[2019-03-04 10:04] LABS: WBC,URINE 50-70 /HPF (0-3)
[2019-03-04 10:16] LABS: CALCIUM, SERUM 8.7 mg/dL (8.5-10.1); POTASSIUM 4.5 mmol/L (3.5-5.1)
--- NOTE | 2019-03-04 10:37 | NUR ---
PATIENT AWAKE ALERT NON DISTRESS ,DC HOME INSTRUCTION GIVEN AGREES TO CALL PMD IN 2 DAYS VERBALIZED UNDERSTANDING
--- NOTE | 2019-03-04 10:39 | NUR ---
Patient discharged to home in stable condition. Written and verbal after care instructions given. Patient verbalizes understanding of instruction.
--- NOTE | 2019-03-04 10:44 | NUR ---
Patient discharged to home in stable condition. Written and verbal after care instructions given. Patient verbalizes understanding of instruction.
[2019-03-04 10:47] VITALS: BP 134/78
== END 2019-03-04 10:47 | disposition home or self-care (01) ==
LOC: ER 09:04
DX: N39.0 Urinary tract infection, site not specified (principal); E11.42 Type 2 diabetes mellitus with diabetic polyneuropathy; Z79.82 Long term (current) use of aspirin; Z79.4 Long term (current) use of insulin; Z79.899 Other long term (current) drug therapy
CPT/HCPCS: 36415; 80048-TC; 81000-TC; 85025-TC; 87086-TC; 87186-TC

== ENCOUNTER 2019-06-26 09:31 | Emergency (ER) | payer MEDICAID ==
[~2019-06-26] VITALS: Ht 160 cm; Wt 59.9 kg
--- NOTE | 2019-06-26 09:42 | NUR ---
bibduagjoanna, c/o chest pressure on and off since tuesday, +N/V, +diarrhea. Patient a/ox4, breathing even and unlabored, no sob noted, ambulatory with steady gait.
[2019-06-26 09:56] LABS: BASOPHILS % (AUTO) 0.5 % (0.0-2.0); HEMATOCRIT 41 % (33-45); LYMPHOCYTES # (AUTO) 1.5 /CMM (0.8-4.8); LYMPHOCYTES % (AUTO) 21.2 % (20.0-44.0); MEAN CORPUSCULAR HGB CONC 32 g/dl (31.0-36.0); MEAN CORPUSCULAR VOLUME 84 fL (82-100); MONOCYTES # (AUTO) 0.4 /CMM (0.1-1.30); NEUTROPHILS # (AUTO) 5.2 /CMM (1.8-8.9); NEUTROPHILS % (AUTO) 72.3 % (43.0-81.0); PLATELET COUNT (AUTO) 239 /CMM (150-450); RED BLOOD CELL COUNT(AUTO) 4.87 MIL/uL (4.0-5.2); WHITE BLOOD COUNT (AUTO) 7.2 K/uL (4.3-11.0)
[2019-06-26] MEDS ORDERED: ONDANSETRON HCL/PF 4 MG/2 ML VIAL IVP ONE (10:00)
[2019-06-26] MEDS ORDERED: MORPHINE SULFATE INJ 2 MG/ML DISP.SYRIN IV ONE (10:00)
[2019-06-26] MEDS ORDERED: MORPHINE SULFATE INJ 4 MG/ML DISP.SYRIN ONE (10:02)
[2019-06-26] MEDS ORDERED: ONDANSETRON HCL/PF 4 MG/2 ML VIAL ONE (10:02)
--- NOTE | 2019-06-26 10:10 | NUR ---
taken to ct.
[2019-06-26 10:14] LABS: CALCIUM, SERUM 9.9 mg/dL (8.5-10.1); CARBON DIOXIDE 33 mmol/L (21-32); CHLORIDE 101 mmol/L (98-107); GLUCOSE 347 mg/dL (74-106); POTASSIUM 4.9 mmol/L (3.5-5.1); SODIUM SERUM 140 mmol/L (136-145); UREA NITROGEN, BLOOD 19 mg/dL (7-18)
[2019-06-26 10:19] LABS: BILIRUBIN,URINE Negative (NEGATIVE); BLOOD, URINE Moderate Ery/uL (NEGATIVE); COLOR,URINE Yellow (YELLOW); KETONES,URINE Negative (NEGATIVE); LEUKOCYTE ESTERASE ,URINE Trace (NEGATIVE); NITRITE, URINE Positive (NEGATIVE); PH,URINE 5.5 (5.0-8.0); PROTEIN,URINE 30 mg/dl (NEGATIVE); UGLUCOSE >=1000 mg/dL (NEGATIVE); UROBILINOGEN,URINE 0.2 EU/dL (0.2)
[2019-06-26 10:19] LABS: ALANINE AMINOTRANSFERASE 13 U/L (12-78); ALBUMIN 3.6 g/dL (3.4-5.0); ALKALINE PHOSPHATASE 145 U/L (46-116); ASPARTATE AMINOTRANSFERASE 13 U/L (15-37); BILIRUBIN,DIRECT 0.2 mg/dL (0.0-0.2); BILIRUBIN,TOTAL 0.8 mg/dL (0.2-1.0); TOTAL PROTEIN, SERUM 8.1 g/dL (6.4-8.2)
[2019-06-26 10:21] LABS: APPEARANCE,URINE CLOUDY (CLEAR); WBC,URINE 51-80 /HPF (0-3)
[2019-06-26 10:22] LABS: BACTERIA,URINE Moderate /HPF (None Seen); SQUAMOUS EPITHELIAL CELL,UR Moderate /HPF (None Seen)
[2019-06-26] MEDS ORDERED: CEFTRIAXONE 1GM BAG (ER ONLY) 50 ML IV ONE (10:59)
[2019-06-26] MEDS ORDERED: CEFTRIAXONE 1GM BAG (ER ONLY) 1 GM/50 ML PIGGYBACK IV ONE (11:00)
[2019-06-26] MEDS ORDERED: IV NS 0.9% 1,000 ML BAG IV ONE (11:00)
--- NOTE | 2019-06-26 13:10 | NUR ---
Patient stated she feels better, denies pain at this time. Ambulatory with steady gait. IV removed. Catheter intact and site benign. Pressure and 4x4 applied to site. No bleeding noted.Patient discharged to home in stable condition. Written and verbal after care instructions given. Patient verbalizes understanding of instruction.
[2019-06-26 13:11] VITALS: BP 131/82
== END 2019-06-26 13:11 | disposition home or self-care (01) ==
LOC: ER 09:31
DX: E11.65 Type 2 diabetes mellitus with hyperglycemia (principal); N39.0 Urinary tract infection, site not specified; R07.89 Other chest pain; E11.42 Type 2 diabetes mellitus with diabetic polyneuropathy; Z95.818 Presence of other cardiac implants and grafts; Z79.899 Other long term (current) drug therapy; Z79.82 Long term (current) use of aspirin; Z79.4 Long term (current) use of insulin; Z79.84 Long term (current) use of oral hypoglycemic drugs
CPT/HCPCS: 36415; 71045; 74176; 80048; 80076; 81001; 82962; 84484 ×2; 85025; 85730; 87086; 87804 ×2; 93005 ×2; 96365; 96375; 99285; J0696; J2270; J2405; J7030; 81000-TC

== ENCOUNTER 2019-11-16 13:34 | Emergency (ER) | payer MEDICAID ==
[~2019-11-16] VITALS: Ht 157.5 cm; Wt 64.0 kg
[2019-11-16 13:45] VITALS: BP 127/63
--- NOTE | 2019-11-16 14:21 | NUR ---
PT LEFT WITHOUT BEING SEEN BY ER PROVIDER.
== END 2019-11-16 14:23 | disposition left against medical advice (07) ==
LOC: ER 13:35
DX: Z53.21 Procedure and treatment not carried out due to patient leaving prior to being seen by health care provider (principal); R53.1 Weakness; E11.42 Type 2 diabetes mellitus with diabetic polyneuropathy; Z98.890 Other specified postprocedural states

== ENCOUNTER 2022-08-24 12:38 | Emergency (ER) | payer MEDICAID ==
[~2022-08-24] VITALS: Ht 157.5 cm; Wt 68.5 kg
[2022-08-24 13:17] VITALS: BP 133/61
--- NOTE | 2022-08-24 15:59 | NUR ---
PATIENT LEFT WITHOUT NOTICE, DIDNT SIGN THE DISCHARGE PAPER. CHARGE NURSE AND MD AWARE
== END 2022-08-24 16:02 | disposition home or self-care (01) ==
LOC: ER 12:38
DX: J02.9 Acute pharyngitis, unspecified (principal); E11.65 Type 2 diabetes mellitus with hyperglycemia; Z79.4 Long term (current) use of insulin; Z79.82 Long term (current) use of aspirin; Z79.84 Long term (current) use of oral hypoglycemic drugs; Z79.899 Other long term (current) drug therapy
CPT/HCPCS: 99283; 87880; 82962; A4223; 86403-TC